=== PATIENT | female | born 1935 | race Asian ===

== ENCOUNTER 2021-12-07 00:11 | Emergency (ER) | payer BC ==
[~2021-12-07] VITALS: Ht 160 cm; Wt 41.3 kg
--- NOTE | 2021-12-07 01:56 | NUR ---
TO ER BED 6. BIBFAMILY C/O CONSTIPATION X 1 WEEK. NOT RELIEVED BY OTC MEDS. DENIES ANY ABDOMINAL PAIN, PT STATES " FEELS BLOATED". CONNECTED TO MONITOR. AWAITING MD MA
[2021-12-07] MEDS ORDERED: MINERAL OIL 133 ML (PYXIS) 1 EA ENEMA RC ONE ×3 (02:18→02:49)
[2021-12-07] MEDS ORDERED: MAGNESIUM CITRATE 296 ML BOTTLE ONE (02:58)
[2021-12-07] MEDS ORDERED: MAGNESIUM CITRATE 296 ML BOTTLE PO ONE (03:00)
--- NOTE | 2021-12-07 03:05 | NUR ---
PROVIDED PT WITH CITRATE OF MAGNESIA TO TAKE AT HOME, PER MD ORDERS.
[2021-12-07 03:06] VITALS: BP 141/80
== END 2021-12-07 03:06 | disposition home or self-care (01) ==
LOC: ER 00:24
DX: K59.00 Constipation, unspecified (principal); Z86.69 Personal history of other diseases of the nervous system and sense organs
CPT/HCPCS: 74018